=== PATIENT | male | born 1965 | race Caucasian/White ===

== ENCOUNTER 2017-08-13 16:12 | Emergency (ER) | payer SELFPAY ==
[~2017-08-13] VITALS: Ht 182.9 cm; Wt 77.1 kg
[2017-08-13] MEDS ORDERED: HYDROCODONE/APAP 10MG-325MG TAB PO ONE (17:00)
--- NOTE | 2017-08-13 17:48 | Diagnostic Imaging Report ---
PROCEDURE:HIP RIGHT 2-3 VW (+/- PELVIS) INDICATION:Right leg numbness COMPARISON:None. FINDINGS:Partially visualized intramedullary lance 2 fixating screws. Minimal lucency around the proximal medial portion of the lance. Comparison with old studies would be of benefit to ascertain whether this is a new finding. CONCLUSION:Minimal lucency around the proximal medial portion of the IM lance. Sanjay Tai D.O. Dictated by: Sanjay Tai D.O. on 08/13/2017 at 17:47 Electronically approved by: Sanjay Tai D.O. on 08/13/2017 at 17:47
--- NOTE | 2017-08-13 17:51 | Diagnostic Imaging Report ---
PROCEDURE: X-RAY LUMBAR SPINE, TWO VIEWS COMPARISON: None. INDICATIONS: RIGHT LEG NUMBNESS FINDINGS: The lumbar spine is in anatomic alignment without evidence of spondylolisthesis or spondylolysis. Central compression deformity of the superior endplate of L2 may represent a minimal compression fracture; age indeterminate. There is scattered diffuse degenerative spurring. Diffuse vascular calcification. The paraspinal soft tissues are normal. CONCLUSION: Scattered degenerative changes of the spine. Central compression deformity of the superior endplate of L2. Sanjay Tai D.O. Dictated by: Sanjay Tai D.O. on 08/13/2017 at 17:51 Electronically approved by: Sanjay Tai D.O. on 08/13/2017 at 17:51
--- NOTE | 2017-08-13 17:54 | Diagnostic Imaging Report ---
PROCEDURE:FEMUR TWO VIEW MINIMUM RIGHT INDICATION:Right leg numbness COMPARISON:None. FINDINGS:The femoral intramedullary lance fixating a mid shaft femoral fracture is noted. Vascular calcification is present. CONCLUSION:No significant abnormality. Sanjay Tai D.O. Dictated by: Sanjay Tai D.O. on 08/13/2017 at 17:53 Electronically approved by: Sanjay Tai D.O. on 08/13/2017 at 17:53
[2017-08-13 19:03] VITALS: BP 165/100
== END 2017-08-13 19:10 | disposition home or self-care (01) ==
LOC: ER 16:12
DX: M25.551 Pain in right hip (principal); S76.011A Strain of muscle, fascia and tendon of right hip, initial encounter; S76.111A Strain of right quadriceps muscle, fascia and tendon, initial encounter; F17.210 Nicotine dependence, cigarettes, uncomplicated
CPT/HCPCS: 72100; 99283

== ENCOUNTER 2020-03-15 16:56 | Inpatient (IN) | payer MEDICARE, OTHER ==
[~2020-03-15] VITALS: Ht 182.9 cm; Wt 60.4 kg
[2020-03-15] MEDS ORDERED: ACETAMINOPHEN 325 MG TAB PO STA (17:31)
[2020-03-15] MEDS ORDERED: PIPERACILLIN/TAZO 4.5 GM 100 ML IV STA (17:31)
[2020-03-15 17:47] LABS: BASOPHILS # (AUTO) 0.1 (0.0-0.1); BASOPHILS % 0.3 % (0.0-1.0); HEMATOCRIT 41.1 % (38.2-49.6); HEMOGLOBIN 13.8 g/dL (14.0-18.0); LYMPHOCYTES # (AUTO) 1.2 (1.0-3.2); LYMPHOCYTES % 7.9 % (18.0-39.1); MEAN CORPUSCULAR HEMOGLOBIN 34.2 pg (28-32); MEAN CORPUSCULAR HGB CONC 33.6 g/dL (31-35); MEAN CORPUSCULAR VOLUME 101.7 fL (81-99); MONOCYTES # (AUTO) 1.1 (0.2-0.8); MONOCYTES % 7.3 % (4.4-11.3); NEUTROPHILS # (AUTO) 12.7 (2.1-6.9); NEUTROPHILS % 84.2 % (38.7-80.0); PLATELET COUNT 506 x10e3/uL (140-360); RED BLOOD COUNT 4.04 x10e6/uL (4.3-5.7); RED CELL DISTRIBUTION WIDTH 14.2 % (11.7-14.4)
[2020-03-15 18:03] LABS: BILIRUBIN,URINE SMALL (NEGATIVE); CLARITY,URINE CLEAR (CLEAR); COLOR,URINE YELLOW (YELLOW); KETONES,URINE NEGATIVE (NEGATIVE); LEUKOCYTE ESTERASE ,URINE TRACE (NEGATIVE); NITRITE,URINE NEGATIVE (NEGATIVE); PROTEIN,URINE DIPSTICK 1+ (NEGATIVE); URINE UROBILINOGEN 0.2 mg/dL (0.2 - 1)
[2020-03-15 18:07] LABS: BACTERIA,URINE FEW /HPF
[2020-03-15 18:10] LABS: ALANINE AMINOTRANSFERASE 8 IU/L (0-55); ALBUMIN 2.5 g/dL (3.5-5.0); ALBUMIN/GLOBULIN RATIO 0.6 (0.8-2.0); ALKALINE PHOSPHATASE 109 IU/L (40-150); ANION GAP 17.1 mmol/L (8-16); BLOOD UREA NITROGEN < 5 mg/dL (7-26); CALCIUM 8.2 mg/dL (8.4-10.2); CARBON DIOXIDE 22 mmol/L (22-29); CHLORIDE 94 mmol/L (98-107); CREATININE, SERUM 0.63 mg/dL (0.72-1.25); EST GLOMERULAR FILTRATION RATE > 60 ML/MIN (60-); GLUCOSE 146 mg/dL (74-118); POTASSIUM 4.1 mmol/L (3.5-5.1); SODIUM 129 mmol/L (136-145)
[2020-03-15 18:11] LABS: BUN/CREATININE RATIO 8 (6-25)
[2020-03-15] MEDS ORDERED: VANCOMYCIN 750MG/NS 150ML IVPB 150 ML IV SCH (18:15)
[2020-03-15] MEDS ORDERED: SODIUM CHLORIDE 0.9% 1000ML 1,000 ML IV SCH (18:15)
[2020-03-15 21:00] VITALS: BP 145/85
[2020-03-15 21:18] VITALS: BP 160/96
[2020-03-15 22:00] VITALS: BP 160/96
[2020-03-15] MEDS ORDERED: AMLODIPINE BESYL5 MG PO (22:56)
[2020-03-15 23:55] VITALS: BP 149/94
[2020-03-16 05:05] VITALS: BP 158/95
[2020-03-16 06:30] LABS: BASOPHILS # (AUTO) 0.1 (0.0-0.1); BASOPHILS % 0.4 % (0.0-1.0); EOSINOPHILS # (AUTO) 0.1 (0.0-0.4); EOSINOPHILS % 0.5 % (0.0-6.0); HEMATOCRIT 34.8 % (38.2-49.6); HEMOGLOBIN 11.9 g/dL (14.0-18.0); LYMPHOCYTES # (AUTO) 1.2 (1.0-3.2); LYMPHOCYTES % 9.9 % (18.0-39.1); MEAN CORPUSCULAR HEMOGLOBIN 35.2 pg (28-32); MEAN CORPUSCULAR HGB CONC 34.2 g/dL (31-35); MONOCYTES # (AUTO) 1.2 (0.2-0.8); MONOCYTES % 9.9 % (4.4-11.3); NEUTROPHILS # (AUTO) 9.7 (2.1-6.9); NEUTROPHILS % 78.8 % (38.7-80.0); PLATELET COUNT 415 x10e3/uL (140-360); RED BLOOD COUNT 3.38 x10e6/uL (4.3-5.7); RED CELL DISTRIBUTION WIDTH 14.4 % (11.7-14.4)
[2020-03-16 06:58] LABS: ALANINE AMINOTRANSFERASE 6 IU/L (0-55); ALBUMIN 2.1 g/dL (3.5-5.0); ALBUMIN/GLOBULIN RATIO 0.5 (0.8-2.0); ALKALINE PHOSPHATASE 109 IU/L (40-150); ANION GAP 10.3 mmol/L (8-16); BLOOD UREA NITROGEN < 5 mg/dL (7-26); CARBON DIOXIDE 25 mmol/L (22-29); CHLORIDE 101 mmol/L (98-107); CREATININE, SERUM 0.53 mg/dL (0.72-1.25); EST GLOMERULAR FILTRATION RATE > 60 ML/MIN (60-); GLUCOSE 87 mg/dL (74-118); POTASSIUM 3.3 mmol/L (3.5-5.1); SODIUM 133 mmol/L (136-145)
[2020-03-16 06:59] LABS: BUN/CREATININE RATIO 9 (6-25)
[2020-03-16] MEDS: VANCOMYCIN 750MG/NS 150ML IVPB 150 ML IV SCH ×2 (08:00→20:27)
[2020-03-16 08:17] VITALS: BP 139/104
[2020-03-16 08:45] VITALS: BP 139/104
[2020-03-16] MEDS ORDERED: SODIUM CHLORIDE 0.9% 250ML 250 ML ONE (09:24)
[2020-03-16 11:46] VITALS: BP 167/103
[2020-03-16] MEDS ORDERED: AMLODIPINE BESYLATE 5 MG TAB PO SCH (12:13)
[2020-03-16] MEDS ORDERED: ACETAMINOPHEN 325 MG TAB PO ONE (12:15)
[2020-03-16 16:02] VITALS: BP 150/92
[2020-03-16] MEDS: ASCORBIC ACID 500 MG TAB PO SCH (17:00)
[2020-03-16] MEDS: ENOXAPARIN 30 MG/0.3 ML SYR SC SCH (17:00)
[2020-03-16] MEDS: AMLODIPINE BESYLATE 5 MG TAB PO SCH (17:00)
[2020-03-16] MEDS ORDERED: POTASSIUM CHLORIDE 20 MEQ TAB CR PO ONE (17:00)
[2020-03-16 20:00] VITALS: BP 165/98
[2020-03-16] MEDS ORDERED: HYDROCODONE/APAP 5MG-325MG TAB PO ONE (20:45)
[2020-03-17] VITALS (8 sets, daily range): BP systolic 143–157; BP diastolic 80–96
[2020-03-17] MEDS: HYDROCODONE/APAP 5MG-325MG TAB PO PRN ×4 (05:37→22:15)
[2020-03-17 06:03] LABS: BASOPHILS % 0.3 % (0.0-1.0); EOSINOPHILS # (AUTO) 0.1 (0.0-0.4); EOSINOPHILS % 0.4 % (0.0-6.0); HEMATOCRIT 37.1 % (38.2-49.6); HEMOGLOBIN 12.5 g/dL (14.0-18.0); LYMPHOCYTES # (AUTO) 1.6 (1.0-3.2); LYMPHOCYTES % 14.2 % (18.0-39.1); MEAN CORPUSCULAR HEMOGLOBIN 34.3 pg (28-32); MEAN CORPUSCULAR HGB CONC 33.7 g/dL (31-35); MEAN CORPUSCULAR VOLUME 101.9 fL (81-99); MONOCYTES # (AUTO) 1.1 (0.2-0.8); MONOCYTES % 9.2 % (4.4-11.3); NEUTROPHILS # (AUTO) 8.8 (2.1-6.9); NEUTROPHILS % 75.6 % (38.7-80.0); PLATELET COUNT 447 x10e3/uL (140-360); RED BLOOD COUNT 3.64 x10e6/uL (4.3-5.7)
[2020-03-17 06:19] LABS: ANION GAP 12.2 mmol/L (8-16); BLOOD UREA NITROGEN < 5 mg/dL (7-26); CALCIUM 8.3 mg/dL (8.4-10.2); CARBON DIOXIDE 23 mmol/L (22-29); CHLORIDE 100 mmol/L (98-107); CREATININE, SERUM 0.49 mg/dL (0.72-1.25); EST GLOMERULAR FILTRATION RATE > 60 ML/MIN (60-); GLUCOSE 84 mg/dL (74-118); POTASSIUM 3.2 mmol/L (3.5-5.1); SODIUM 132 mmol/L (136-145)
[2020-03-17 06:20] LABS: BUN/CREATININE RATIO 10 (6-25)
[2020-03-17] MEDS: VANCOMYCIN 750MG/NS 150ML IVPB 150 ML IV SCH ×2 (08:00→20:34)
[2020-03-17] MEDS: FAMOTIDINE 20 MG TAB PO SCH (09:00)
[2020-03-17] MEDS: AMLODIPINE BESYLATE 5 MG TAB PO SCH ×2 (09:00→17:00)
[2020-03-17] MEDS: ASCORBIC ACID 500 MG TAB PO SCH ×2 (09:00→17:00)
[2020-03-17] MEDS: COLLAGENASE 5 GM TUBE TP SCH (09:00)
[2020-03-17] MEDS: ENOXAPARIN 30 MG/0.3 ML SYR SC SCH (17:00)
[2020-03-17] MEDS ORDERED: POTASSIUM CHLORIDE 20 MEQ TAB CR PO ONE (17:14)
[2020-03-17] MEDS: NICOTINE 14 MG/EA PATCH TOP SCH (18:00)
[2020-03-18] VITALS (8 sets, daily range): BP systolic 125–153; BP diastolic 81–94
[2020-03-18] MEDS: HYDROCODONE/APAP 5MG-325MG TAB PO PRN ×6 (02:18→21:56)
[2020-03-18 06:45] LABS: BASOPHILS # (AUTO) 0.1 (0.0-0.1); BASOPHILS % 0.6 % (0.0-1.0); EOSINOPHILS # (AUTO) 0.1 (0.0-0.4); EOSINOPHILS % 0.9 % (0.0-6.0); HEMATOCRIT 37.3 % (38.2-49.6); HEMOGLOBIN 12.5 g/dL (14.0-18.0); LYMPHOCYTES # (AUTO) 1.6 (1.0-3.2); LYMPHOCYTES % 15.7 % (18.0-39.1); MEAN CORPUSCULAR HEMOGLOBIN 33.7 pg (28-32); MEAN CORPUSCULAR HGB CONC 33.5 g/dL (31-35); MEAN CORPUSCULAR VOLUME 100.5 fL (81-99); MONOCYTES # (AUTO) 0.9 (0.2-0.8); MONOCYTES % 9.4 % (4.4-11.3); NEUTROPHILS # (AUTO) 7.3 (2.1-6.9); PLATELET COUNT 440 x10e3/uL (140-360); RED BLOOD COUNT 3.71 x10e6/uL (4.3-5.7); RED CELL DISTRIBUTION WIDTH 13.9 % (11.7-14.4)
[2020-03-18 07:02] LABS: ANION GAP 11.8 mmol/L (8-16); BLOOD UREA NITROGEN 5 mg/dL (7-26); BUN/CREATININE RATIO 11 (6-25); CALCIUM 8.3 mg/dL (8.4-10.2); CARBON DIOXIDE 23 mmol/L (22-29); CHLORIDE 101 mmol/L (98-107); CREATININE, SERUM 0.46 mg/dL (0.72-1.25); EST GLOMERULAR FILTRATION RATE > 60 ML/MIN (60-); GLUCOSE 81 mg/dL (74-118); POTASSIUM 3.8 mmol/L (3.5-5.1); SODIUM 132 mmol/L (136-145)
[2020-03-18] MEDS: VANCOMYCIN 750MG/NS 150ML IVPB 150 ML IV SCH ×2 (08:00→20:18)
[2020-03-18] MEDS: COLLAGENASE 5 GM TUBE TP SCH (09:00)
[2020-03-18] MEDS: ASCORBIC ACID 500 MG TAB PO SCH ×2 (09:00→17:00)
[2020-03-18] MEDS: NICOTINE 14 MG/EA PATCH TOP SCH (09:00)
[2020-03-18] MEDS: FAMOTIDINE 20 MG TAB PO SCH (09:00)
[2020-03-18] MEDS: AMLODIPINE BESYLATE 5 MG TAB PO SCH ×2 (09:00→17:00)
[2020-03-18] MEDS ORDERED: NICOTINE 14 MG/EA PATCH TOP SCH (09:00)
[2020-03-18] MEDS: CEFEPIME 1GM/NS 0.9% 50 ML 50 ML IV SCH (15:30)
[2020-03-18] MEDS: ENOXAPARIN 30 MG/0.3 ML SYR SC SCH (17:00)
[2020-03-19] VITALS (7 sets, daily range): BP systolic 121–161; BP diastolic 77–99
[2020-03-19] MEDS: CEFEPIME 1GM/NS 0.9% 50 ML 50 ML IV SCH ×2 (02:00→15:30)
[2020-03-19] MEDS: HYDROCODONE/APAP 5MG-325MG TAB PO PRN ×4 (02:00→21:29)
[2020-03-19 05:26] LABS: BASOPHILS # (AUTO) 0.1 (0.0-0.1); BASOPHILS % 0.6 % (0.0-1.0); EOSINOPHILS # (AUTO) 0.1 (0.0-0.4); EOSINOPHILS % 1.2 % (0.0-6.0); HEMATOCRIT 36.4 % (38.2-49.6); HEMOGLOBIN 12.1 g/dL (14.0-18.0); LYMPHOCYTES # (AUTO) 1.4 (1.0-3.2); LYMPHOCYTES % 13.7 % (18.0-39.1); MEAN CORPUSCULAR HEMOGLOBIN 33.8 pg (28-32); MEAN CORPUSCULAR HGB CONC 33.2 g/dL (31-35); MEAN CORPUSCULAR VOLUME 101.7 fL (81-99); MONOCYTES % 9.6 % (4.4-11.3); NEUTROPHILS # (AUTO) 7.8 (2.1-6.9); NEUTROPHILS % 74.6 % (38.7-80.0); PLATELET COUNT 416 x10e3/uL (140-360); RED BLOOD COUNT 3.58 x10e6/uL (4.3-5.7); RED CELL DISTRIBUTION WIDTH 13.9 % (11.7-14.4)
[2020-03-19 05:49] LABS: BLOOD UREA NITROGEN 6 mg/dL (7-26); BUN/CREATININE RATIO 12 (6-25); CALCIUM 8.2 mg/dL (8.4-10.2); CARBON DIOXIDE 23 mmol/L (22-29); CHLORIDE 102 mmol/L (98-107); CREATININE, SERUM 0.52 mg/dL (0.72-1.25); EST GLOMERULAR FILTRATION RATE > 60 ML/MIN (60-); GLUCOSE 84 mg/dL (74-118); SODIUM 133 mmol/L (136-145); VANCOMYCIN,RANDOM 8.3 ug/mL
[2020-03-19] MEDS: VANCOMYCIN 750MG/NS 150ML IVPB 150 ML IV SCH (08:35)
[2020-03-19] MEDS: NICOTINE 14 MG/EA PATCH TOP SCH (08:35)
[2020-03-19] MEDS: COLLAGENASE 5 GM TUBE TP SCH (08:35)
[2020-03-19] MEDS: FAMOTIDINE 20 MG TAB PO SCH (08:35)
[2020-03-19] MEDS: AMLODIPINE BESYLATE 5 MG TAB PO SCH ×2 (08:35→18:03)
[2020-03-19] MEDS: ASCORBIC ACID 500 MG TAB PO SCH ×2 (08:35→18:01)
[2020-03-19] MEDS ORDERED: LIDOCAINE HCL 2% LOCAL 20 ML VIAL ONE (13:41)
[2020-03-19] MEDS ORDERED: MIDAZOLAM HCL 2 MG/2 ML VIAL ONE ×4 (13:41→15:21)
[2020-03-19] MEDS ORDERED: HEPARIN SOD/SOD CHLORIDE 2,000 ML ONE (13:41)
[2020-03-19] MEDS ORDERED: FENTANYL CITRATE/PF 100MCG/2 ML INJ ONE ×2 (13:41→14:30)
[2020-03-19] MEDS ORDERED: SODIUM CHLORIDE 0.9% 1000ML 1,000 ML ONE (13:42)
[2020-03-19] MEDS ORDERED: IOPAMIDOL 300MG/ML 100 ML INFUS..BTL IV ONE ×2 (13:42→15:23)
[2020-03-19] MEDS ORDERED: ASPIRIN 325 MG TAB ONE (15:55)
[2020-03-19] MEDS ORDERED: CLOPIDOGREL BISULFATE 75 MG TAB ONE (15:55)
[2020-03-19] MEDS ORDERED: HEPARIN SOD (PORCINE) 1000 UNIT/ML 30ML ONE (16:07)
[2020-03-19] MEDS: ENOXAPARIN 30 MG/0.3 ML SYR SC SCH (18:01)
[2020-03-19] MEDS: VANCOMYCIN 1GM/NS 250 ML 250 ML IV SCH (20:40)
[2020-03-20] VITALS: BP 128/71
[2020-03-20] MEDS: HYDROCODONE/APAP 5MG-325MG TAB PO PRN ×3 (01:38→15:50)
[2020-03-20] MEDS: CEFEPIME 1GM/NS 0.9% 50 ML 50 ML IV SCH ×2 (03:44→15:30)
[2020-03-20 04:00] VITALS: BP 147/89
[2020-03-20 05:07] LABS: BASOPHILS # (AUTO) 0.1 (0.0-0.1); BASOPHILS % 0.8 % (0.0-1.0); EOSINOPHILS # (AUTO) 0.2 (0.0-0.4); EOSINOPHILS % 1.8 % (0.0-6.0); HEMATOCRIT 33.6 % (38.2-49.6); HEMOGLOBIN 11.2 g/dL (14.0-18.0); LYMPHOCYTES # (AUTO) 1.2 (1.0-3.2); LYMPHOCYTES % 13.7 % (18.0-39.1); MEAN CORPUSCULAR HEMOGLOBIN 33.8 pg (28-32); MEAN CORPUSCULAR HGB CONC 33.3 g/dL (31-35); MEAN CORPUSCULAR VOLUME 101.5 fL (81-99); MONOCYTES # (AUTO) 0.9 (0.2-0.8); MONOCYTES % 10.3 % (4.4-11.3); NEUTROPHILS # (AUTO) 6.3 (2.1-6.9); NEUTROPHILS % 73.2 % (38.7-80.0); PLATELET COUNT 405 x10e3/uL (140-360); RED BLOOD COUNT 3.31 x10e6/uL (4.3-5.7); RED CELL DISTRIBUTION WIDTH 14.2 % (11.7-14.4)
[2020-03-20 05:32] LABS: ANION GAP 11.8 mmol/L (8-16); BLOOD UREA NITROGEN 6 mg/dL (7-26); BUN/CREATININE RATIO 12 (6-25); CALCIUM 8.3 mg/dL (8.4-10.2); CARBON DIOXIDE 23 mmol/L (22-29); CHLORIDE 102 mmol/L (98-107); EST GLOMERULAR FILTRATION RATE > 60 ML/MIN (60-); GLUCOSE 84 mg/dL (74-118); MAGNESIUM 1.5 MG/DL (1.3-2.1); PHOSPHORUS 3.5 MG/DL (2.3-4.7); POTASSIUM 3.8 mmol/L (3.5-5.1); SODIUM 133 mmol/L (136-145)
[2020-03-20 08:00] VITALS: BP 143/87
[2020-03-20] MEDS: VANCOMYCIN 1GM/NS 250 ML 250 ML IV SCH (08:00)
[2020-03-20] MEDS: NICOTINE 14 MG/EA PATCH TOP SCH (09:00)
[2020-03-20] MEDS: FAMOTIDINE 20 MG TAB PO SCH (09:00)
[2020-03-20] MEDS: COLLAGENASE 5 GM TUBE TP SCH (09:00)
[2020-03-20] MEDS: AMLODIPINE BESYLATE 5 MG TAB PO SCH ×2 (09:00→17:00)
[2020-03-20] MEDS: ASCORBIC ACID 500 MG TAB PO SCH ×2 (09:00→17:00)
[2020-03-20 09:48] VITALS: BP 143/87
[2020-03-20] MEDS ORDERED: HYDRALAZINE HCL 20 MG/ML VIAL IV PRN (11:45)
[2020-03-20] MEDS ORDERED: ONDANSETRON HCL INJ 2MG/ML 2ML 2 MG/ML VIAL IV PRN (11:45)
[2020-03-20] MEDS ORDERED: ACETAMINOPHEN 325 MG TAB PO PRN (11:45)
[2020-03-20 11:59] VITALS: BP 136/94
[2020-03-20] MEDS ORDERED: CLOPIDOGREL BISULFATE 75 MG TAB PO SCH (12:00)
[2020-03-20] MEDS ORDERED: PLAVIX75 MG PO (12:03)
[2020-03-20] MEDS ORDERED: Collagenase TP (12:03)
[2020-03-20] MEDS ORDERED: TYLENOL # 31 EA PO (12:03)
[2020-03-20] MEDS ORDERED: NORVASC5 MG PO (12:03)
[2020-03-20 16:00] VITALS: BP 149/93
[2020-03-20] MEDS: ENOXAPARIN 30 MG/0.3 ML SYR SC SCH (17:00)
[2020-03-20] MEDS ORDERED: CEFTRIAXONE SOD 1 GM/NS 50 ML 50 ML IV ONE (17:00)
== END 2020-03-20 20:07 | disposition home health service (06) | DRG 854 ==
LOC: ER 17:30 → ERHOLD 20:19 → MED/SURG2 20:32
PROVIDERS: ADMIT Internal Medicine; ATTEND Internal Medicine
PROC: B41D1ZZ Fluoroscopy of Aorta and Bilateral Lower Extremity Arteries using Low Osmolar Contrast (ICD-10-PCS; principal; 2020-03-15)
PROC: 047M3Z1 Dilation of Right Popliteal Artery using Drug-Coated Balloon, Percutaneous Approach (ICD-10-PCS; principal; 2020-03-15)
PROC: 04CM3ZZ Extirpation of Matter from Right Popliteal Artery, Percutaneous Approach (ICD-10-PCS; principal; 2020-03-15)
PROC: X27H385 Dilation of Right Femoral Artery with Sustained Release Drug-eluting Intraluminal Device, Percutaneous Approach, New Technology Group 5 (ICD-10-PCS; principal; 2020-03-15)
PROC: 04CK3ZZ Extirpation of Matter from Right Femoral Artery, Percutaneous Approach (ICD-10-PCS; principal; 2020-03-15)
DX: A41.9 Sepsis, unspecified organism (principal); I70.261 Atherosclerosis of native arteries of extremities with gangrene, right leg; M86.8X7 Other osteomyelitis, ankle and foot; L97.428 Non-pressure chronic ulcer of left heel and midfoot with other specified severity; R65.20 Severe sepsis without septic shock; I10 Essential (primary) hypertension; E78.5 Hyperlipidemia, unspecified; G89.3 Neoplasm related pain (acute) (chronic); E87.6 Hypokalemia; E87.8 Other disorders of electrolyte and fluid balance, not elsewhere classified; I70.244 Atherosclerosis of native arteries of left leg with ulceration of heel and midfoot; Z11.59 Encounter for screening for other viral diseases; F17.210 Nicotine dependence, cigarettes, uncomplicated
CPT/HCPCS: 36247; 36415; 36569; 37227; 37228; 71045; 75630; 80048; 80053; 80202; 81001; 83605; 83735; 84100; 85025; 87040; 87071; 87086; 87186; 87205; 93005; 93925; 99152; 99153; 99251; 99285; C1725; C1760; C1769; C1876; C1887; J0692; J0696; J1644; J1650; J2001; J2250; J2543; J3010; J3370; J7030; J7050; Q9967; U0002

== ENCOUNTER 2020-11-14 00:38 | Inpatient (IN) | payer OTHER ==
[~2020-11-14] VITALS: Ht 182.9 cm; Wt 60.3 kg
[~2020-11-14 00:38] MED LIST: AMLODIPINE BESYL5 MG PO; Collagenase TP; NORVASC5 MG PO; PLAVIX75 MG PO; TYLENOL # 31 EA PO
[2020-11-14] MEDS ORDERED: ASPIRIN 81 MG CHEW TAB PO ONE (01:45)
[2020-11-14] MEDS ORDERED: VANCOMYCIN 1GM/NS 250 ML 250 ML IV STA (01:46)
[2020-11-14] MEDS ORDERED: CEFEPIME 1 GM in SODIUM CHLORIDE 0.9% 50ML 50 ML IV ONE (02:00)
[2020-11-14 02:33] LABS: BASOPHILS % 0.5 % (0.0-1.0); EOSINOPHILS # (AUTO) 0.3 (0.0-0.4); EOSINOPHILS % 3.2 % (0.0-6.0); HEMOGLOBIN 14.3 g/dL (14.0-18.0); LYMPHOCYTES # (AUTO) 2.1 (1.0-3.2); LYMPHOCYTES % 23.7 % (18.0-39.1); MEAN CORPUSCULAR HEMOGLOBIN 33.3 pg (28-32); MEAN CORPUSCULAR HGB CONC 34.9 g/dL (31-35); MEAN CORPUSCULAR VOLUME 95.3 fL (81-99); MONOCYTES # (AUTO) 0.8 (0.2-0.8); MONOCYTES % 9.1 % (4.4-11.3); NEUTROPHILS # (AUTO) 5.6 (2.1-6.9); PLATELET COUNT 476 x10e3/uL (140-360)
[2020-11-14] MEDS: MORPHINE SULFATE INJ 4 MG/ML INJ 1ML IV PRN (02:44)
[2020-11-14] MEDS: SODIUM CHLORIDE 0.9% 1000ML 1,000 ML IV SCH ×3 (02:44→18:00)
[2020-11-14 02:54] LABS: ALANINE AMINOTRANSFERASE 6 IU/L (0-55); ALBUMIN 3.2 g/dL (3.5-5.0); ALBUMIN/GLOBULIN RATIO 0.6 (0.8-2.0); ANION GAP 14.6 mmol/L (8-16); BLOOD UREA NITROGEN < 5 mg/dL (7-26); BUN/CREATININE RATIO 9 (6-25); CALCIUM 8.7 mg/dL (8.4-10.2); CARBON DIOXIDE 25 mmol/L (22-29); CHLORIDE 97 mmol/L (98-107); CREATINE KINASE 55 IU/L (30-200); CREATININE, SERUM 0.56 mg/dL (0.72-1.25); EST GLOMERULAR FILTRATION RATE > 60 ML/MIN (60-); POTASSIUM 3.6 mmol/L (3.5-5.1); SODIUM 133 mmol/L (136-145)
[2020-11-14 02:55] LABS: GLUCOSE 54 mg/dL (74-118)
[2020-11-14] MEDS ORDERED: DEXTROSE 50% SYRINGE 50 ML IV PRN (03:00)
[2020-11-14] MEDS ORDERED: DEXTROSE 50% SYRINGE 50 ML IV ONE (03:05)
[2020-11-14 03:10] LABS: ALKALINE PHOSPHATASE 82 IU/L (40-150)
[2020-11-14] MEDS ORDERED: SODIUM CHLORIDE 0.9% 250ML 250 ML ONE (04:33)
[2020-11-14] MEDS ORDERED: Vancomycin IV 1 GM VIAL ONE (04:33)
[2020-11-14] MEDS ORDERED: DOXYCYCLINE PO (05:54)
[2020-11-14] MEDS ORDERED: ULTRAM50 MG PO (05:54)
[2020-11-14] MEDS ORDERED: CIPRO250 MG PO (05:54)
[2020-11-14 08:00] VITALS: BP 143/72
[2020-11-14 08:02] VITALS: BP 143/92
[2020-11-14 11:44] VITALS: BP 136/75
[2020-11-14 16:02] VITALS: BP 148/84
[2020-11-14] MEDS: OYST-CAL-D 500MG TABLET PO SCH (17:03)
[2020-11-14] MEDS: ASCORBIC ACID 500 MG TAB PO SCH (17:03)
[2020-11-14] MEDS: ZINC SULFATE 220 MG CAP PO SCH (17:03)
[2020-11-14] MEDS: MAGNESIUM OXIDE 400 MG TAB PO SCH (17:04)
[2020-11-14] MEDS: Vancomycin IV 1 GM in SODIUM CHLORIDE 0.9% 250ML 250 ML IV SCH (17:04)
[2020-11-14] MEDS: AMLODIPINE BESYLATE 5 MG TAB PO SCH (17:04)
[2020-11-14] MEDS: PIPERACILLIN/TAZOBACTAM 3.375 GM in SODIUM CHLORIDE 0.9% 50ML 50 ML IV SCH ×2 (18:12→23:54)
[2020-11-14 20:00] VITALS: BP 154/79
[2020-11-15] VITALS (7 sets, daily range): BP systolic 131–166; BP diastolic 83–92
[2020-11-15] MEDS: MORPHINE SULFATE INJ 4 MG/ML INJ 1ML IV PRN ×6 (00:18→22:27)
[2020-11-15] MEDS: SODIUM CHLORIDE 0.9% 1000ML 1,000 ML IV SCH ×2 (03:07→18:00)
[2020-11-15] MEDS: Vancomycin IV 1 GM in SODIUM CHLORIDE 0.9% 250ML 250 ML IV SCH ×2 (04:02→15:50)
[2020-11-15 05:05] LABS: BASOPHILS # (AUTO) 0.1 (0.0-0.1); BASOPHILS % 0.6 % (0.0-1.0); EOSINOPHILS # (AUTO) 0.2 (0.0-0.4); HEMATOCRIT 37.9 % (38.2-49.6); HEMOGLOBIN 13.2 g/dL (14.0-18.0); LYMPHOCYTES # (AUTO) 1.5 (1.0-3.2); LYMPHOCYTES % 18.7 % (18.0-39.1); MEAN CORPUSCULAR HEMOGLOBIN 33.1 pg (28-32); MEAN CORPUSCULAR HGB CONC 34.8 g/dL (31-35); MONOCYTES # (AUTO) 1.1 (0.2-0.8); MONOCYTES % 14.1 % (4.4-11.3); NEUTROPHILS % 64.2 % (38.7-80.0); PLATELET COUNT 455 x10e3/uL (140-360); RED BLOOD COUNT 3.99 x10e6/uL (4.3-5.7); RED CELL DISTRIBUTION WIDTH 14.1 % (11.7-14.4)
[2020-11-15 05:36] LABS: ALBUMIN 2.6 g/dL (3.5-5.0); ALBUMIN/GLOBULIN RATIO 0.6 (0.8-2.0); ALKALINE PHOSPHATASE 68 IU/L (40-150); ANION GAP 12.3 mmol/L (8-16); BLOOD UREA NITROGEN < 5 mg/dL (7-26); BUN/CREATININE RATIO 10 (6-25); CALCIUM 8.4 mg/dL (8.4-10.2); CARBON DIOXIDE 25 mmol/L (22-29); CHLORIDE 102 mmol/L (98-107); CREATININE, SERUM 0.51 mg/dL (0.72-1.25); EST GLOMERULAR FILTRATION RATE > 60 ML/MIN (60-); GLUCOSE 95 mg/dL (74-118); POTASSIUM 3.3 mmol/L (3.5-5.1); SODIUM 136 mmol/L (136-145)
[2020-11-15] MEDS: PIPERACILLIN/TAZOBACTAM 3.375 GM in SODIUM CHLORIDE 0.9% 50ML 50 ML IV SCH ×4 (05:48→23:22)
[2020-11-15 06:31] LABS: MAGNESIUM 1.6 MG/DL (1.3-2.1)
[2020-11-15 06:50] LABS: PHOSPHORUS 2.6 MG/DL (2.3-4.7)
[2020-11-15 06:59] LABS: ALANINE AMINOTRANSFERASE 6 IU/L (0-55)
[2020-11-15] MEDS ORDERED: MAGNESIUM SULFATE 2GM/50ML 50 ML IV ONE (08:00)
[2020-11-15] MEDS: AMLODIPINE BESYLATE 5 MG TAB PO SCH ×2 (09:22→17:28)
[2020-11-15] MEDS: MULTIVITAMINS/MINERALS TAB PO SCH (09:22)
[2020-11-15] MEDS: ZINC SULFATE 220 MG CAP PO SCH ×2 (09:22→17:28)
[2020-11-15] MEDS: OYST-CAL-D 500MG TABLET PO SCH ×2 (09:22→17:28)
[2020-11-15] MEDS: MAGNESIUM OXIDE 400 MG TAB PO SCH ×2 (09:22→17:28)
[2020-11-15] MEDS: NICOTINE 7 MG PATCH TOP SCH (09:22)
[2020-11-15] MEDS: ASCORBIC ACID 500 MG TAB PO SCH ×2 (09:22→17:28)
[2020-11-15] MEDS ORDERED: POTASSIUM CHLORIDE 20 MEQ TAB CR PO ONE (10:00)
[2020-11-15] MEDS ORDERED: GADOBENATE DIMEGLUMINE 1 ML IV ONE (11:38)
[2020-11-16] VITALS (8 sets, daily range): BP systolic 120–145; BP diastolic 64–98
[2020-11-16] MEDS: SODIUM CHLORIDE 0.9% 1000ML 1,000 ML IV SCH ×3 (01:36→23:58)
[2020-11-16] MEDS: MORPHINE SULFATE INJ 4 MG/ML INJ 1ML IV PRN ×7 (02:31→23:45)
[2020-11-16] MEDS: Vancomycin IV 1 GM in SODIUM CHLORIDE 0.9% 250ML 250 ML IV SCH (03:14)
[2020-11-16] MEDS: PIPERACILLIN/TAZOBACTAM 3.375 GM in SODIUM CHLORIDE 0.9% 50ML 50 ML IV SCH ×3 (06:40→20:00)
[2020-11-16] MEDS: MAGNESIUM OXIDE 400 MG TAB PO SCH ×2 (09:20→17:03)
[2020-11-16] MEDS: ZINC SULFATE 220 MG CAP PO SCH ×2 (09:20→17:03)
[2020-11-16] MEDS: NICOTINE 7 MG PATCH TOP SCH (09:20)
[2020-11-16] MEDS: OYST-CAL-D 500MG TABLET PO SCH ×2 (09:20→17:03)
[2020-11-16] MEDS: AMLODIPINE BESYLATE 5 MG TAB PO SCH ×2 (09:20→17:03)
[2020-11-16] MEDS: ASCORBIC ACID 500 MG TAB PO SCH ×2 (09:20→17:03)
[2020-11-16] MEDS: MULTIVITAMINS/MINERALS TAB PO SCH (09:20)
[2020-11-16 13:57] LABS: BASOPHILS % 0.5 % (0.0-1.0); EOSINOPHILS # (AUTO) 0.1 (0.0-0.4); EOSINOPHILS % 1.6 % (0.0-6.0); HEMATOCRIT 36.4 % (38.2-49.6); HEMOGLOBIN 12.2 g/dL (14.0-18.0); LYMPHOCYTES # (AUTO) 1.4 (1.0-3.2); LYMPHOCYTES % 17.3 % (18.0-39.1); MEAN CORPUSCULAR HEMOGLOBIN 32.8 pg (28-32); MEAN CORPUSCULAR HGB CONC 33.5 g/dL (31-35); MEAN CORPUSCULAR VOLUME 97.8 fL (81-99); MONOCYTES # (AUTO) 0.9 (0.2-0.8); MONOCYTES % 11.4 % (4.4-11.3); NEUTROPHILS # (AUTO) 5.6 (2.1-6.9); PLATELET COUNT 409 x10e3/uL (140-360); RED BLOOD COUNT 3.72 x10e6/uL (4.3-5.7); RED CELL DISTRIBUTION WIDTH 14.4 % (11.7-14.4)
[2020-11-16 14:43] LABS: ANION GAP 11.9 mmol/L (8-16); BLOOD UREA NITROGEN 5 mg/dL (7-26); BUN/CREATININE RATIO 9 (6-25); CALCIUM 8.3 mg/dL (8.4-10.2); CARBON DIOXIDE 26 mmol/L (22-29); CHLORIDE 100 mmol/L (98-107); CREATININE, SERUM 0.55 mg/dL (0.72-1.25); EST GLOMERULAR FILTRATION RATE > 60 ML/MIN (60-); GLUCOSE 118 mg/dL (74-118); POTASSIUM 3.9 mmol/L (3.5-5.1); SODIUM 134 mmol/L (136-145)
[2020-11-16] MEDS: Vancomycin IV 1.5 GM in SODIUM CHLORIDE 0.9% 250ML 300 ML IV SCH (17:03)
[2020-11-17] VITALS (7 sets, daily range): BP systolic 134–138; BP diastolic 68–87
[2020-11-17] MEDS: PIPERACILLIN/TAZOBACTAM 3.375 GM in SODIUM CHLORIDE 0.9% 50ML 50 ML IV SCH ×4 (02:29→20:27)
[2020-11-17] MEDS: MORPHINE SULFATE INJ 4 MG/ML INJ 1ML IV PRN ×5 (04:17→22:30)
[2020-11-17] MEDS: Vancomycin IV 1.5 GM in SODIUM CHLORIDE 0.9% 250ML 300 ML IV SCH ×2 (05:27→17:00)
[2020-11-17] MEDS: SODIUM CHLORIDE 0.9% 1000ML 1,000 ML IV SCH ×3 (05:44→16:41)
[2020-11-17 08:12] LABS: BASOPHILS # (AUTO) 0.1 (0.0-0.1); BASOPHILS % 0.8 % (0.0-1.0); EOSINOPHILS # (AUTO) 0.3 (0.0-0.4); EOSINOPHILS % 4.3 % (0.0-6.0); HEMATOCRIT 35.4 % (38.2-49.6); HEMOGLOBIN 11.8 g/dL (14.0-18.0); LYMPHOCYTES # (AUTO) 1.5 (1.0-3.2); LYMPHOCYTES % 19.3 % (18.0-39.1); MEAN CORPUSCULAR HEMOGLOBIN 32.9 pg (28-32); MEAN CORPUSCULAR HGB CONC 33.3 g/dL (31-35); MEAN CORPUSCULAR VOLUME 98.6 fL (81-99); MONOCYTES % 12.2 % (4.4-11.3); PLATELET COUNT 415 x10e3/uL (140-360); RED BLOOD COUNT 3.59 x10e6/uL (4.3-5.7); RED CELL DISTRIBUTION WIDTH 14.3 % (11.7-14.4)
[2020-11-17 08:30] LABS: ANION GAP 9.8 mmol/L (8-16); BLOOD UREA NITROGEN < 5 mg/dL (7-26); CALCIUM 8.2 mg/dL (8.4-10.2); CARBON DIOXIDE 27 mmol/L (22-29); CHLORIDE 103 mmol/L (98-107); CREATININE, SERUM 0.53 mg/dL (0.72-1.25); EST GLOMERULAR FILTRATION RATE > 60 ML/MIN (60-); GLUCOSE 81 mg/dL (74-118); POTASSIUM 3.8 mmol/L (3.5-5.1); SODIUM 136 mmol/L (136-145)
[2020-11-17] MEDS: MAGNESIUM OXIDE 400 MG TAB PO SCH ×2 (08:30→16:41)
[2020-11-17] MEDS: MULTIVITAMINS/MINERALS TAB PO SCH (08:30)
[2020-11-17] MEDS: ASCORBIC ACID 500 MG TAB PO SCH ×2 (08:30→16:41)
[2020-11-17] MEDS: OYST-CAL-D 500MG TABLET PO SCH ×2 (08:30→16:41)
[2020-11-17] MEDS: NICOTINE 7 MG PATCH TOP SCH (08:30)
[2020-11-17] MEDS: AMLODIPINE BESYLATE 5 MG TAB PO SCH ×2 (08:30→16:41)
[2020-11-17] MEDS: ZINC SULFATE 220 MG CAP PO SCH ×2 (08:30→16:41)
[2020-11-17 08:59] LABS: BUN/CREATININE RATIO 9 (6-25)
[2020-11-18] MEDS: PIPERACILLIN/TAZOBACTAM 3.375 GM in SODIUM CHLORIDE 0.9% 50ML 50 ML IV SCH ×4 (01:18→20:22)
[2020-11-18] MEDS: SODIUM CHLORIDE 0.9% 1000ML 1,000 ML IV SCH ×3 (01:18→18:41)
[2020-11-18] MEDS: MORPHINE SULFATE INJ 4 MG/ML INJ 1ML IV PRN ×6 (02:45→22:58)
[2020-11-18] MEDS: Vancomycin IV 1.5 GM in SODIUM CHLORIDE 0.9% 250ML 300 ML IV SCH ×2 (05:17→17:30)
[2020-11-18 06:27] LABS: ANION GAP 9.2 mmol/L (8-16); BLOOD UREA NITROGEN < 5 mg/dL (7-26); CARBON DIOXIDE 23 mmol/L (22-29); CHLORIDE 111 mmol/L (98-107); CREATININE, SERUM 0.47 mg/dL (0.72-1.25); EST GLOMERULAR FILTRATION RATE > 60 ML/MIN (60-); GLUCOSE 77 mg/dL (74-118); POTASSIUM 3.2 mmol/L (3.5-5.1); SODIUM 140 mmol/L (136-145)
[2020-11-18 06:28] LABS: BUN/CREATININE RATIO 11 (6-25)
[2020-11-18 06:30] LABS: CALCIUM 6.9 mg/dL (8.4-10.2)
[2020-11-18] MEDS: ZINC SULFATE 220 MG CAP PO SCH ×2 (09:07→18:40)
[2020-11-18] MEDS: MULTIVITAMINS/MINERALS TAB PO SCH (09:07)
[2020-11-18] MEDS: MAGNESIUM OXIDE 400 MG TAB PO SCH ×2 (09:07→18:40)
[2020-11-18] MEDS: NICOTINE 7 MG PATCH TOP SCH (09:07)
[2020-11-18] MEDS: OYST-CAL-D 500MG TABLET PO SCH ×2 (09:07→18:40)
[2020-11-18] MEDS: AMLODIPINE BESYLATE 5 MG TAB PO SCH ×2 (09:07→18:40)
[2020-11-18] MEDS: ASCORBIC ACID 500 MG TAB PO SCH ×2 (09:07→18:40)
[2020-11-18] MEDS ORDERED: POTASSIUM CHLORIDE 20 MEQ TAB CR PO STA (13:36)
[2020-11-19] MEDS: PIPERACILLIN/TAZOBACTAM 3.375 GM in SODIUM CHLORIDE 0.9% 50ML 50 ML IV SCH ×2 (02:29→09:02)
[2020-11-19] MEDS: MORPHINE SULFATE INJ 4 MG/ML INJ 1ML IV PRN ×2 (03:00→07:25)
[2020-11-19] MEDS: Vancomycin IV 1.5 GM in SODIUM CHLORIDE 0.9% 250ML 300 ML IV SCH (05:06)
[2020-11-19] MEDS: SODIUM CHLORIDE 0.9% 1000ML 1,000 ML IV SCH ×2 (05:37→10:39)
[2020-11-19 05:48] LABS: BASOPHILS # (AUTO) 0.1 (0.0-0.1); BASOPHILS % 0.7 % (0.0-1.0); EOSINOPHILS # (AUTO) 0.3 (0.0-0.4); HEMATOCRIT 32.7 % (38.2-49.6); LYMPHOCYTES # (AUTO) 1.3 (1.0-3.2); LYMPHOCYTES % 15.5 % (18.0-39.1); MEAN CORPUSCULAR HEMOGLOBIN 32.8 pg (28-32); MEAN CORPUSCULAR HGB CONC 33.6 g/dL (31-35); MEAN CORPUSCULAR VOLUME 97.6 fL (81-99); NEUTROPHILS # (AUTO) 5.6 (2.1-6.9); NEUTROPHILS % 67.3 % (38.7-80.0); PLATELET COUNT 353 x10e3/uL (140-360); RED BLOOD COUNT 3.35 x10e6/uL (4.3-5.7); RED CELL DISTRIBUTION WIDTH 14.6 % (11.7-14.4)
[2020-11-19 06:13] LABS: ALANINE AMINOTRANSFERASE 6 IU/L (0-55); ALBUMIN 2.3 g/dL (3.5-5.0); ALBUMIN/GLOBULIN RATIO 0.7 (0.8-2.0); ALKALINE PHOSPHATASE 51 IU/L (40-150); ANION GAP 8.5 mmol/L (8-16); BLOOD UREA NITROGEN 5 mg/dL (7-26); BUN/CREATININE RATIO 10 (6-25); CALCIUM 7.3 mg/dL (8.4-10.2); CARBON DIOXIDE 24 mmol/L (22-29); CHLORIDE 109 mmol/L (98-107); CREATININE, SERUM 0.49 mg/dL (0.72-1.25); EST GLOMERULAR FILTRATION RATE > 60 ML/MIN (60-); GLUCOSE 93 mg/dL (74-118); POTASSIUM 3.5 mmol/L (3.5-5.1); SODIUM 138 mmol/L (136-145)
[2020-11-19] MEDS: ZINC SULFATE 220 MG CAP PO SCH (09:00)
[2020-11-19] MEDS: MULTIVITAMINS/MINERALS TAB PO SCH (09:00)
[2020-11-19] MEDS: ASCORBIC ACID 500 MG TAB PO SCH (09:00)
[2020-11-19] MEDS: AMLODIPINE BESYLATE 5 MG TAB PO SCH (09:00)
[2020-11-19] MEDS: OYST-CAL-D 500MG TABLET PO SCH (09:00)
[2020-11-19] MEDS: MAGNESIUM OXIDE 400 MG TAB PO SCH (09:00)
[2020-11-19] MEDS: NICOTINE 7 MG PATCH TOP SCH (09:03)
[2020-11-19] MEDS ORDERED: FENTANYL CITRATE/PF 100MCG/2 ML INJ ONE ×2 (10:43→13:59)
[2020-11-19] MEDS ORDERED: MORPHINE SULFATE INJ 10 MG/ML ONE (10:43)
[2020-11-19] MEDS ORDERED: ONDANSETRON HCL INJ 2MG/ML 2ML 2 MG/ML VIAL ONE (13:23)
[2020-11-19] MEDS ORDERED: SEVOFLURANE INHAL SOLN 250 ML PEN BTL ONE (13:23)
[2020-11-19] MEDS ORDERED: LIDOCAINE HCL 2% LOCAL INJ 5 ML SDV VIAL INJ ONE (13:23)
[2020-11-19] MEDS ORDERED: POVIDONE IODINE 0.05% 0.05 % ML PO ONE (13:23)
[2020-11-19] MEDS ORDERED: PROPOFOL IV EMULSION 10 MG/ML 20 ML VIAL ONE (13:23)
[2020-11-19] MEDS ORDERED: MORPHINE SULFATE INJ 4 MG/ML INJ 1ML ONE (14:08)
[2020-11-19] MEDS ORDERED: HYDROMORPHONE 1MG/1ML INJ ONE (14:23)
[2020-11-20] MEDS: Vancomycin IV 1.5 GM in SODIUM CHLORIDE 0.9% 250ML 300 ML IV SCH ×3 (05:00→18:08)
[2020-11-20] MEDS: MULTIVITAMINS/MINERALS TAB PO SCH (09:00)
[2020-11-20] MEDS: ZINC SULFATE 220 MG CAP PO SCH ×3 (09:00→18:21)
[2020-11-20] MEDS: OYST-CAL-D 500MG TABLET PO SCH ×3 (09:00→18:21)
[2020-11-20] MEDS: AMLODIPINE BESYLATE 5 MG TAB PO SCH ×3 (09:00→18:21)
[2020-11-20] MEDS: ASCORBIC ACID 500 MG TAB PO SCH ×3 (09:00→18:21)
[2020-11-20] MEDS: MAGNESIUM OXIDE 400 MG TAB PO SCH ×3 (09:00→18:21)
[2020-11-20] MEDS: NICOTINE 7 MG PATCH TOP SCH (09:00)
[2020-11-20] MEDS: SODIUM CHLORIDE 0.9% 1000ML 1,000 ML IV SCH ×3 (10:00→18:23)
[2020-11-20] MEDS: MAGNESIUM SULF 1GRAM/DEXTROSE 100 ML IV SCH ×5 (11:00→20:12)
[2020-11-20] MEDS: PIPERACILLIN/TAZOBACTAM 3.375 GM in SODIUM CHLORIDE 0.9% 50ML 50 ML IV SCH ×2 (14:00→20:00)
[2020-11-20] MEDS ORDERED: POTASSIUM CHLORIDE 20 MEQ TAB CR PO ONE (15:00)
[2020-11-20 15:57] VITALS: BP 147/80
[2020-11-20 19:25] VITALS: BP 143/85
[2020-11-20] MEDS: HYDROMORPHONE 1MG/1ML INJ IV PRN (22:10)
[2020-11-20 23:18] VITALS: BP 143/85
[2020-11-21] VITALS (8 sets, daily range): BP systolic 137–164; BP diastolic 74–86
[2020-11-21] MEDS: HYDROMORPHONE 1MG/1ML INJ IV PRN ×8 (01:05→22:45)
[2020-11-21] MEDS: PIPERACILLIN/TAZOBACTAM 3.375 GM in SODIUM CHLORIDE 0.9% 50ML 50 ML IV SCH ×3 (01:05→14:05)
[2020-11-21] MEDS: Vancomycin IV 1.5 GM in SODIUM CHLORIDE 0.9% 250ML 300 ML IV SCH (05:00)
[2020-11-21 06:14] LABS: BASOPHILS # (AUTO) 0.1 (0.0-0.1); BASOPHILS % 0.6 % (0.0-1.0); EOSINOPHILS # (AUTO) 0.3 (0.0-0.4); EOSINOPHILS % 2.7 % (0.0-6.0); HEMATOCRIT 30.4 % (38.2-49.6); HEMOGLOBIN 10.3 g/dL (14.0-18.0); LYMPHOCYTES # (AUTO) 1.6 (1.0-3.2); MEAN CORPUSCULAR HEMOGLOBIN 32.8 pg (28-32); MEAN CORPUSCULAR HGB CONC 33.9 g/dL (31-35); MEAN CORPUSCULAR VOLUME 96.8 fL (81-99); MONOCYTES # (AUTO) 1.7 (0.2-0.8); MONOCYTES % 16.2 % (4.4-11.3); NEUTROPHILS # (AUTO) 6.9 (2.1-6.9); PLATELET COUNT 372 x10e3/uL (140-360); RED BLOOD COUNT 3.14 x10e6/uL (4.3-5.7); RED CELL DISTRIBUTION WIDTH 14.6 % (11.7-14.4)
[2020-11-21 07:00] LABS: ANION GAP 8.9 mmol/L (8-16); CALCIUM 7.5 mg/dL (8.4-10.2); CREATININE, SERUM 0.52 mg/dL (0.72-1.25); MAGNESIUM 1.9 MG/DL (1.3-2.1); PHOSPHORUS 3.6 MG/DL (2.3-4.7); POTASSIUM 3.9 mmol/L (3.5-5.1)
[2020-11-21] MEDS: AMLODIPINE BESYLATE 5 MG TAB PO SCH ×2 (09:15→16:58)
[2020-11-21] MEDS: NICOTINE 7 MG PATCH TOP SCH (09:15)
[2020-11-21] MEDS: SODIUM CHLORIDE 0.9% 1000ML 1,000 ML IV SCH ×2 (09:15→16:00)
[2020-11-21] MEDS: ZINC SULFATE 220 MG CAP PO SCH ×2 (09:15→16:58)
[2020-11-21] MEDS: ASCORBIC ACID 500 MG TAB PO SCH ×2 (09:15→16:58)
[2020-11-21] MEDS: MULTIVITAMINS/MINERALS TAB PO SCH (09:15)
[2020-11-21] MEDS: OYST-CAL-D 500MG TABLET PO SCH ×2 (09:15→16:58)
[2020-11-21] MEDS: MAGNESIUM OXIDE 400 MG TAB PO SCH ×2 (09:15→16:58)
[2020-11-22 01:35] VITALS: BP 144/81
[2020-11-22] MEDS: HYDROMORPHONE 1MG/1ML INJ IV PRN ×2 (01:50→04:45)
[2020-11-22] MEDS: SODIUM CHLORIDE 0.9% 1000ML 1,000 ML IV SCH ×2 (04:00→15:55)
[2020-11-22 05:30] LABS: BASOPHILS # (AUTO) 0.1 (0.0-0.1); BASOPHILS % 0.6 % (0.0-1.0); EOSINOPHILS # (AUTO) 0.3 (0.0-0.4); EOSINOPHILS % 2.4 % (0.0-6.0); HEMATOCRIT 29.4 % (38.2-49.6); HEMOGLOBIN 9.9 g/dL (14.0-18.0); LYMPHOCYTES # (AUTO) 1.5 (1.0-3.2); LYMPHOCYTES % 13.8 % (18.0-39.1); MEAN CORPUSCULAR HEMOGLOBIN 32.8 pg (28-32); MEAN CORPUSCULAR HGB CONC 33.7 g/dL (31-35); MEAN CORPUSCULAR VOLUME 97.4 fL (81-99); MONOCYTES # (AUTO) 1.9 (0.2-0.8); MONOCYTES % 16.7 % (4.4-11.3); NEUTROPHILS # (AUTO) 7.3 (2.1-6.9); NEUTROPHILS % 66.1 % (38.7-80.0); PLATELET COUNT 378 x10e3/uL (140-360); RED BLOOD COUNT 3.02 x10e6/uL (4.3-5.7); RED CELL DISTRIBUTION WIDTH 14.6 % (11.7-14.4)
[2020-11-22 05:39] VITALS: BP 123/85
[2020-11-22 06:01] LABS: ANION GAP 8.7 mmol/L (8-16); CREATININE, SERUM 0.51 mg/dL (0.72-1.25); POTASSIUM 3.7 mmol/L (3.5-5.1)
[2020-11-22 08:05] VITALS: BP 135/81
[2020-11-22] MEDS: HYDROCODONE/APAP 10MG-325MG TAB PO PRN ×2 (08:12→12:06)
[2020-11-22] MEDS: ZINC SULFATE 220 MG CAP PO SCH ×2 (08:13→17:03)
[2020-11-22] MEDS: ASCORBIC ACID 500 MG TAB PO SCH ×2 (08:13→17:02)
[2020-11-22] MEDS: MAGNESIUM OXIDE 400 MG TAB PO SCH ×2 (08:13→17:02)
[2020-11-22] MEDS: AMLODIPINE BESYLATE 5 MG TAB PO SCH ×2 (08:13→17:02)
[2020-11-22] MEDS: MULTIVITAMINS/MINERALS TAB PO SCH (08:13)
[2020-11-22] MEDS: NICOTINE 7 MG PATCH TOP SCH (08:13)
[2020-11-22] MEDS: OYST-CAL-D 500MG TABLET PO SCH ×2 (08:13→17:02)
[2020-11-22 08:35] VITALS: BP 135/81
[2020-11-22 11:51] VITALS: BP 129/84
[2020-11-22 16:33] VITALS: BP 176/88
== END 2020-11-22 18:40 | disposition home or self-care (01) | DRG 475 ==
LOC: ER 01:39 → ERHOLD 03:35 → MED/SURG3 05:20
PROVIDERS: ADMIT Internal Medicine; ATTEND Internal Medicine
PROC: 02HV33Z Insertion of Infusion Device into Superior Vena Cava, Percutaneous Approach (ICD-10-PCS; principal; 2020-11-14)
PROC: 0Y6H0Z1 Detachment at Right Lower Leg, High, Open Approach (ICD-10-PCS; 2020-11-19)
DX: M86.171 Other acute osteomyelitis, right ankle and foot (principal); L02.415 Cutaneous abscess of right lower limb; L03.115 Cellulitis of right lower limb; M00.9 Pyogenic arthritis, unspecified; L97.419 Non-pressure chronic ulcer of right heel and midfoot with unspecified severity; E44.1 Mild protein-calorie malnutrition; Z68.1 Body mass index [BMI] 19.9 or less, adult; J44.9 Chronic obstructive pulmonary disease, unspecified; F17.210 Nicotine dependence, cigarettes, uncomplicated; Z95.820 Peripheral vascular angioplasty status with implants and grafts; I10 Essential (primary) hypertension; Z20.822 Contact with and (suspected) exposure to COVID-19; L97.514 Non-pressure chronic ulcer of other part of right foot with necrosis of bone; B87.0 Cutaneous myiasis; R53.81 Other malaise; E83.42 Hypomagnesemia; E87.6 Hypokalemia; G89.4 Chronic pain syndrome
CPT/HCPCS: 36415; 36569; 71045; 80048; 80053; 80202; 82550; 82553; 82948; 83605; 83735; 84100; 84484; 85025; 85651; 86140; 87040; 88307; 88311; 96361; 97139; 99251; 99285; J0692; J1170; J2001; J2270; J2405; J2543; J3010; J3370; J3475; J7030; J7050; J7799; U0002

== ENCOUNTER 2020-11-24 21:18 | Emergency (ER) | payer OTHER ==
[~2020-11-24] VITALS: Ht 182.9 cm; Wt 60.3 kg
[~2020-11-24 21:18] MED LIST changes: +CIPRO250 MG PO; +DOXYCYCLINE PO; +ULTRAM50 MG PO
== END 2020-11-24 22:11 | disposition home or self-care (01) ==
LOC: ER 21:38
DX: Z48.01 Encounter for change or removal of surgical wound dressing (principal); I10 Essential (primary) hypertension
CPT/HCPCS: 99283